=== PATIENT | female | born 1990 | race Caucasian/White ===

== ENCOUNTER 2019-10-06 16:37 | Inpatient (IN) | payer MEDICAID ==
[~2019-10-06] VITALS: Ht 157.5 cm; Wt 81.6 kg
[2019-10-06 16:58] VITALS: BP 153/84
--- NOTE | 2019-10-06 17:14 | NUR ---
Patient ambulated to bed 2
[2019-10-06] MEDS ORDERED: NACL 0.9% 1,000 ML IV ONE (17:20)
[2019-10-06] MEDS ORDERED: cefTRIAXone 1,000 MG VIAL ONE (17:35)
--- NOTE | 2019-10-06 17:44 | NUR ---
29 Y/O FEMALE PRESENT WITH LEFT BREAST SWELLLING/ PAIN STARTING TWO WEEKS AGO. BREAST BIOPSY WAS PERFORMED SEP 23. BREST IS WARM TO TOUCH, TENDER AND RED AROUND AREOLA. PATIENT RATES PAIN 8/10. PT DENIES SOB/ CP. RESP ARE EVEN AND UNLABORED. LUNG SOUNDS CLEAR IN ALL FARIAS. BOWEL SOUNDS NORMO ACTIVE. CAP REFILL <3. AAOX4. NO PMH NKA
--- NOTE | 2019-10-06 18:04 | NUR ---
BLOOD CULTURES OBTAINED AT BESIDE. ANTIBIOTICS STARTED AFTERWARDS
[2019-10-06 18:19] LABS: BASOPHILS % (AUTO) 0.5 % (0.0-2.0); EOSINOPHILS # (AUTO) 0.2 K/uL (0-0.4); EOSINOPHILS % (AUTO) 2.5 % (0.0-4.0); HEMATOCRIT 40.3 % (36-48); HEMOGLOBIN 13.1 g/dL (12.0-16.0); LYMPHOCYTES # (AUTO) 1.8 K/uL (2.5-16.5); LYMPHOCYTES % (AUTO) 20.1 % (20.5-51.1); MEAN CORPUSCULAR HEMOGLOBIN 27 pg (27-31); MEAN CORPUSCULAR HGB CONC 33 g/dL (33-37); MONOCYTES # (AUTO) 0.5 K/uL (0.8-1.0); MONOCYTES % (AUTO) 5.4 % (1.7-9.3); NEUTROPHILS # (AUTO) 6.5 K/uL (1.8-7.7); NEUTROPHILS % (AUTO) 71.5 % (42.2-75.2); PLATELET COUNT (AUTO) 279 K/uL (140-450); RED BLOOD CELL COUNT(AUTO) 4.92 MIL/uL (4.20-5.40)
[2019-10-06 18:33] LABS: PROTHROMBIN TIME 10.2 secs (10.8-13.4)
[2019-10-06 18:35] LABS: ANION GAP 15.2 (8-16); CARBON DIOXIDE 25.7 mmol/L (21-32); CREATININE 0.6 mg/dL (0.6-1.3); POTASSIUM 3.9 mmol/L (3.5-5.1)
--- NOTE | 2019-10-06 18:44 | NUR ---
PT IS RESTING IN BED. VSS. RESP EVEN AND UNLABORED. ALL NEEDS MET AT THIS TIME
[2019-10-06] MEDS ORDERED: HYDROcodone/APAP 5/325 MG 1 TAB TAB PO PRN (19:10)
[2019-10-06] MEDS ORDERED: LORazepam 2 MG/ML VIAL IM/IVP PRN (19:10)
[2019-10-06] MEDS ORDERED: ACETAMINOPHEN 325 MG TAB PO PRN (19:10)
[2019-10-06] MEDS ORDERED: ZOLPIDEM 5 MG TAB PO PRN (19:10)
[2019-10-06] MEDS ORDERED: DOCUSATE SODIUM 100 MG GELCAP PO PRN (19:10)
[2019-10-06] MEDS ORDERED: ONDANSETRON 4 MG/2 ML VIAL IM/IVP PRN (19:10)
[2019-10-06] MEDS ORDERED: MORPHINE SULFATE 2 MG/ML SYR IVP PRN (19:10)
--- NOTE | 2019-10-06 19:12 | NUR ---
SBAR GIVEN TO CINDY RN.
--- NOTE | 2019-10-06 19:35 | NUR ---
Patient will be admitted to care of DR. MARTINEZ. Admited to MED SURG. Will go to room 120B. Belongings list completed. Report to SHONDA ROSS. PT VSS.
--- NOTE | 2019-10-06 19:40 | NUR ---
ADMITTED THIS 29 YEAR OLD FEMALE FROM ER PER DEEPALI WITH CC OF LEFT BREAST ABSCESS, AMBULATED TO BED WITH STEADY GAIT, TOLERABLE PAIN 5/10 AT THIS TIME, VITAL SIGNS STABLE, AFEBRILE, PT KINYARWANDA SPEAKING, HX AND ASSESSMENT OBTAINED WITH ASSIST FROM Stealz FIELD TECHNICAL SPECIALIST ESAU ID#[id number], ORIENTED TO ROOM AND CALL LIGHT, PLAN OF CARE DISCUSSED, SAFETY MEASURES IN PLACE, CALL LIGHT WITHIN REACH.
[2019-10-06 19:50] VITALS: BP 131/75
[2019-10-06 21:09] LABS: CHOL/HDL RATIO 5.8 (1-4.5); FREE T4 (FREE THYROXINE) 1.15 ng/dL (0.76-1.46); PHOSPHORUS 3.3 mg/dL (2.5-4.9); THYROID STIMULATING HORMONE 1.99 uIU/mL (0.34-3.74)
[2019-10-06] MEDS: NACL 0.9% 1,000 ML IV SCH (21:10)
--- NOTE | 2019-10-06 21:20 | NUR ---
DR JNUIOR GAVE VERBAL ORDER TO FEED PT AND BE NPO AFTER MIDNIGHT, SANDWICH PROVIDED, TOLERATED WELL, INSTRUCTED PT NPO AFTER MIDNIGHT, VERBALIZED UNDERSTANDING, IVF OF NS INFUSING WELL AT 120ML/H, MONITORED CLOSELY.
[2019-10-06] MEDS ORDERED: INFLUENZA VACCINE QUAD 0.5 ML SYR IMVAC PRN (22:20)
[2019-10-07] VITALS: BP 116/77
--- NOTE | 2019-10-07 | NUR ---
PT SLEEPING, EASILY AROUSABLE, DENIES ANY PAIN, VITAL SIGNS STABLE, REINFORCE NPO STATUS, VERBALIZED UNDERSTANDING, IVF INFUSING WELL, CONTINUE TO MONITOR CLOSELY.
[2019-10-07 02:13] LABS: BARBITURATE, URINE NEG. ng/ml (NEG <=200); BENZODIAZEPINE, URINE NEG. ng/mL (NEG <=200); CANNABINOID, URINE NEG. ng/mL (NEG <=50); COCAINE, URINE NEG. ng/mL (NEG <=300); OPIATE, URINE NEG. ng/mL (NEG <=2000); PHENCYCLIDINE SCREEN,URINE NEG. ng/mL (NEG <=25)
--- NOTE | 2019-10-07 03:10 | NUR ---
PT COMPLAINING OF LEFT BREAST PAIN, MEDICATED PRN WITH MORPHINE IVP, MONITORED CLOSELY.
[2019-10-07 04:02] LABS: APPEARANCE,URINE CLEAR (CLEAR); BILIRUBIN,URINE NEGATIVE (NEGATIVE); BLOOD, URINE NEGATIVE (NEGATIVE); COLOR,URINE YELLOW (YELLOW); LEUKOCYTE ESTERASE ,URINE NEGATIVE (NEGATIVE); NITRITE, URINE NEGATIVE (NEGATIVE); UGLUCOSE NEGATIVE (NEGATIVE)
--- NOTE | 2019-10-07 04:10 | NUR ---
SEEN PT SLEEPING, VISIBLE CHEST RISE AND FALL, NO DISTRESS NOTED, IVF INFUSING WELL, MONITORED CLOSELY.
[2019-10-07] MEDS: NACL 0.9% 1,000 ML IV SCH ×3 (05:12→22:14)
--- NOTE | 2019-10-07 06:24 | NUR ---
PT AWAKE, CHG PRE-OP WIPES DONE WITH ASSIST FROM CENTRIFUGAL STATION OPERATOR, MAINTAINED ON NPO, IVF INFUSING WELL, NO C/O PAIN AT THIS TIME, MONITORED CLOSELY.
--- NOTE | 2019-10-07 07:10 | NUR ---
PT AWAKE, NO SIGNS OF DISTRESS, BEDSIDE REPORT GIVEN TO VANDANA MARX FOR CONTINUITY OF CARE.
--- NOTE | 2019-10-07 07:25 | NUR ---
RECEIVED BEDSIDE REPORT FROM QUARRY BOSS NURSE, PT IS AWAKE AND ALERT LYING IN BED, NO S/S OF DISTRESS, ON RA. C/O MILD L BREAST PAIN. PT IS NPO FOR I&D OF THE L BREAST ABSCESS THIS AM. CONSENT HAS ALREADY BEEN SIGNED. PT IS AMBULATORY AND ABLE TO MAKE NEEDS KNOWN. IV SITE L AC 22 G, INFUSING NS 120 ML/HR. CALL LIGHT IS WITHIN REACH. WILL CONTINUE TO MONITOR.
[2019-10-07 08:00] VITALS: BP 125/80
--- NOTE | 2019-10-07 08:17 | NUR ---
PT TAKEN OFF UNIT FOR L BREAST I&D
--- NOTE | 2019-10-07 08:24 | NUR ---
WILL BE SEEN WITHIN 7 DAYS OF ADMISSION. 10/13/[address]
[2019-10-07] MEDS ORDERED: HYDROmorphone 1 MG/ML AMP IVP PRN (09:15)
[2019-10-07] MEDS ORDERED: ONDANSETRON 4 MG/2 ML VIAL IVP PRN (09:15)
[2019-10-07] MEDS ORDERED: PROPOFOL 200 MG/20 ML VIAL IV ONE (09:16)
[2019-10-07] MEDS ORDERED: DESFLURANE 240 ML BTL INH ONE (09:16)
[2019-10-07] MEDS ORDERED: KETOROLAC 60 MG/2 ML VIAL IM ONE (09:16)
[2019-10-07] MEDS ORDERED: DEXAMETHASONE 4 MG/ML VIAL ONE (09:16)
[2019-10-07] MEDS ORDERED: ONDANSETRON 4 MG/2 ML VIAL ONE (09:16)
[2019-10-07] MEDS: BUPIVACAINE-MPF 0.25% 30 ML VIAL INJ ONE ×2 (09:17→10:03)
[2019-10-07] MEDS: LIDOCAINE 1% 500 MG/50 ML VIAL ONE ×2 (09:17→10:03)
[2019-10-07] MEDS ORDERED: HYDROcodone/APAP 5/325 MG 1 TAB TAB PO PRN (09:50)
[2019-10-07 10:40] VITALS: BP 119/61
--- NOTE | 2019-10-07 10:40 | NUR ---
PT IS BACK FROM THE [facility] VS ARE STABLE, PT C/O MINIMAL INCISIONAL PAIN. SHE SAYS SHE IS NOT HUNGRY AT THE MOMENT AND DOESN'T WANT TO EAT. PT IS ON A REGULAR DIET NOW.
[2019-10-07] MEDS: LACTOBACILLUS RHAMNOSUS GG 1 EACH CAP PO SCH (11:31)
[2019-10-07] MEDS: PIPERACILLIN/TAZOBACTAM 3.375 GM in DEXTROSE 5% 50 ML IV SCH ×3 (11:32→23:36)
--- NOTE | 2019-10-07 11:35 | NUR ---
DC PLANNIN YRS OLD FEMALE PT WAS ADMITTED FROM HOME WITH A DX OF LEFT BREAST ABSCESS .BREAST ULTRASOUND SHOWED A COMPLEX COLLECTION IN THE LEFT BREAST. STARTED ON IVF ,SURGICAL CONSULT WITH DR SILVA S/P I&D ON LEFT BREAST DC PLAN WITH HOME HEALTH , IF NOT HOME HEALTH WILL [facility] . CM TO FOLLOW.
--- NOTE | 2019-10-07 11:42 | NUR ---
PT'S FRIENDS ARE VISITING AT BEDSIDE. PT'S CLOSE FRIEND EDDY GAVE HER PHONE NUMBER [phone]
--- NOTE | 2019-10-07 14:46 | NUR ---
PT IS AWAKE AND COMFORTABLE IN BED, C/O MINIMAL L BREAST PAIN S/P I&D, DECLINING ANY PAIN MEDICINE AT THIS TIME. WILL CONTINUE TO MONITOR.
[2019-10-07 16:00] VITALS: BP 116/63
--- NOTE | 2019-10-07 18:27 | NUR ---
PT EATING DINNER, L CHEST DRESSING IS INTACT. C/O MINIMAL PAIN, NO NEED FOR PAIN MEDICINE AT THIS TIME.
--- NOTE | 2019-10-07 19:20 | NUR ---
RECIEVED PT. AAOX4 , NID , RA , W/ BEARABLE POST OP PAIN , -DRESSING ON THE LEFT BREAST STILL DRY AND INTACT . POC DISCUSSED AND VERBALIZE UNDERSTANDING - CALL LIGHT WITHIN REACH . ON SAFETY PRECAUTION PROTOCOL PRECAUTION . WILL CONT. TO MONITOR.
--- NOTE | 2019-10-07 19:20 | NUR ---
ENDORSED PT TO DIRECTOR IT NURSE IN STABLE CONDITION.
--- NOTE | 2019-10-07 22:24 | NUR ---
MADE ROUNDS , NO COMPLAIN MADE AT THIS TIME - CALL LIGHT WITHIN REACH.
--- NOTE | 2019-10-08 | NUR ---
MADE ROUNDS , C/O PAIN ON SURGICAL SITE - DRESSING STILL DRY AND INTACT - NO ACTIVE BLEEDING ON SURGICAL SITE NOTED AT THIS TIME . JUST MEDICATED FOR PAIN - WILL CONT. TO MONITOR. CALL LIGHT WITHIN REACH.
[2019-10-08 00:23] VITALS: BP 110/60
--- NOTE | 2019-10-08 04:00 | NUR ---
MADE ROUNDS , NO S/S OF ACUTE DISTRESS NOTED AT THIS TIME. WILL CONT. TO MONITOR.
[2019-10-08] MEDS: NACL 0.9% 1,000 ML IV SCH (04:28)
[2019-10-08] MEDS: PIPERACILLIN/TAZOBACTAM 3.375 GM in DEXTROSE 5% 50 ML IV SCH (05:04)
--- NOTE | 2019-10-08 06:00 | NUR ---
MADE ROUNDS , NO C/O PAIN AT THIS TIME , WILL CONT. TO MONITOR.
[2019-10-08 07:06] LABS: BASOPHILS % (AUTO) 0.2 % (0.0-2.0); EOSINOPHILS % (AUTO) 0.1 % (0.0-4.0); HEMATOCRIT 36.3 % (36-48); HEMOGLOBIN 11.9 g/dL (12.0-16.0); LYMPHOCYTES # (AUTO) 1.8 K/uL (2.5-16.5); MEAN CORPUSCULAR HEMOGLOBIN 27 pg (27-31); MEAN CORPUSCULAR HGB CONC 33 g/dL (33-37); MONOCYTES # (AUTO) 0.4 K/uL (0.8-1.0); MONOCYTES % (AUTO) 4.7 % (1.7-9.3); PLATELET COUNT (AUTO) 300 K/uL (140-450); RED BLOOD CELL COUNT(AUTO) 4.43 MIL/uL (4.20-5.40); RED CELL DISTRIBUTION WIDTH 13.6 % (11.6-13.7); WHITE BLOOD COUNT (AUTO) 8.2 K/uL (4.8-10.8)
--- NOTE | 2019-10-08 07:11 | NUR ---
ENDORSED TO AM - PT - STABLE - O2 SAT WNL ,ASLEEP AND COMFORTABLE.
--- NOTE | 2019-10-08 07:12 | NUR ---
RECEIVED PATIENT FROM MANAGEMENT ENGINEER NURSE FOR CONTINUITY OF CARE. AAOX4. CENTRAL AFRICAN SPEAKING ONLY. NO SIGNS OF DISTRESS NOTED. RESPIRATIONS EVEN AND UNLABORED, ROOM AIR. DENIES SOB. VISIBLE CHEST RISE NOTED. DENIES CHEST PAIN. DENIES PAIN. SKIN WARM, DRY, INTACT. . IV IN THE LEFT AC G 22 RUNNING NS AT 120 ML/HR. IV IS FLUSHING WELL. BED IN LOW POSITION. CALL LIGHT IS WITHIN REACH. SAFETY MEASURES IN PLACE. WILL CONTINUE TO MONITOR Addendum: 10/08/19 at 0739 by Princess Lamar Olivier RN POST I&D IN THE LEFT BREAST. DRESSING DRY AND INTACT. NO BLEEDING.
[2019-10-08 07:25] LABS: ANION GAP 13.6 (8-16); CARBON DIOXIDE 24.2 mmol/L (21-32); CREATININE 0.5 mg/dL (0.6-1.3); POTASSIUM 3.8 mmol/L (3.5-5.1)
[2019-10-08 07:41] LABS: CHOL/HDL RATIO 5.7 (1-4.5); PHOSPHORUS 2.6 mg/dL (2.5-4.9)
[2019-10-08 08:00] VITALS: BP 126/72
[2019-10-08] MEDS: LACTOBACILLUS RHAMNOSUS GG 1 EACH CAP PO SCH (08:25)
--- NOTE | 2019-10-08 08:25 | NUR ---
GIVEN PROBIOTIC SCHEDULED. HANG NEW NS 1000 BAG AT RATE OF 120 ML/HR. EXPLAINED TO PATIENT MED AND SIDE EFFECTS. PATIENT VERBALIZED UNDERSTANDING. BED IN LOW POSITION. CALL LIGHT IS WITHIN REACH. WILL CONTINUE TO MONITOR
--- NOTE | 2019-10-08 08:28 | NUR ---
DR. JOHNSON SPOKE WITH THE PATIENT REGARDING HOME HEALTH FOR WOUND PACKING.
--- NOTE | 2019-10-08 09:58 | NUR ---
SOCIAL SERVICE AND DR. JOHNSON SPOKE WITH THE PATIENT REGARDING HER QUALIFICATION FOR HOME HEALTH. UNFORTUNATELY, SHE DID NOT QUALIFY. WILL TEACH WOUND CARE TO THE PATIENT AND HER AUNT WHEN SHE COMES VISIT.
[2019-10-08 10:04] VITALS: BP 126/72
--- NOTE | 2019-10-08 10:15 | NUR ---
Hand Laminator Note: Patient has [employer] restricted coverage and does not have home health services benefits. , patient's nurse , and I met with patient at bedside. Patient speaks Kinyarwanda. Patient is aware [employer] restricted does not cover home health benefits. Per , patient/patient's family can be taught how to care for abscess by RN. Patient stated she and her aunt Zahraa are willing to learn how to care of abscess. Per VANDANA Meza, she will provide patient and Zahraa with teaching and also provide patient with wound care supplies. stated he will provide patient with surgeon follow up appt information, patient made aware.
[2019-10-08] MEDS ORDERED: SULF-59 PO (10:38)
[2019-10-08] MEDS ORDERED: ASCO1CAP75 PO (10:38)
--- NOTE | 2019-10-08 12:10 | NUR ---
GIVEN WOUND CARE INSTRUCTIONS AND SUPPLIES. DISCUSSED TO PATIENT AND COUSIN, EDDY, HOW TO CHANGE DRESSINGS AND HOW TO PACK. DEMONSTRATED HOW TO CHANGE DRESSINGS. GIVEN SUPPLIES. INSTRUCTED PATIENT THAT IF SHE SEES ANY ABNORMAL SMELL OR DRAINAGE, BLEEDING, FEVER, OR ANY ABNORMALITIES TO GO SEE A DOCTOR OR TO GO TO ED. PATIENT AND EDDY VERBALIZED AND RETURNED DEMONSTRATIONS WELL
--- NOTE | 2019-10-08 12:18 | NUR ---
PATIENT SIGNED DISCHARGE PAPERS. EDDY, TRANSLATED TO THE PATIENT. EXPLAINED THAT DOCTOR'S PRESCRIBED ANTIBIOTIC AND PROBIOTIC THAT SHE WILL HAVE TO SANDBLAST CARVER AT HER PREFERRED PHARMACY. EXPLAINED AND DEMONSTRATED THE WOUND CARE PACKING AND INSTRUCTIONS. EXPLAINED THAT ONCE WE GOT THE RESULTS FOR THE WOUND CULTURE, DOCTOR WILL CALL HER ABOUT THE RESULTS OR IF THERE A NEED FOR ANOTHER OR DIFFERENT ANTIBIOTIC. PATIENT AND EDDY VERBALIZED UNDERSTANDING.
--- NOTE | 2019-10-08 12:27 | NUR ---
PATIENT SIGNED DISCHARGE PAPERWORKS. WILL GIVE FLU SHOT. Addendum: 10/08/19 at 1239 by Princess Lamar Olivier RN IGNORE. WRONG ENTRY
--- NOTE | 2019-10-08 12:42 | NUR ---
WILL GIVE FLU SHOT
--- NOTE | 2019-10-08 12:52 | NUR ---
GIVEN FLU SHOT IN THE RIGHT UPPER ARM. EXPLAINED TO PATIENT MED AND SIDE EFFECTS. PATIENT VERBALIZED UNDERSTANDING.
--- NOTE | 2019-10-08 12:59 | NUR ---
REMOVED ID BAND. DISCONTINUED IV. NO BLEEDING. SECURED WITH 2X2 AND TAPE.
--- NOTE | 2019-10-08 13:00 | NUR ---
DISCHARGED PATIENT ON FOOT ACCOMPANIED BY EDDY. PATIENT IS IN STABLE AT THIS TIME. NO QUESTIONS. NO SOB. NO ABD PAIN. PATIENT HAS ALL THE DISCHARGE PAPERS AND WOUND CARE INSTRUCTIONS
--- NOTE | 2019-10-10 11:29 | NUR ---
Late entry. Confirmed with RN that 0.9 NS IV completed at 1930
== END 2019-10-08 11:50 | disposition home or self-care (01) | DRG 385 ==
LOC: MED 16:37 → MTU 19:11
PROVIDERS: ADMIT General Practice; ATTEND General Practice
PROC: 0H9U0ZZ Drainage of Left Breast, Open Approach (ICD-10-PCS; principal; 2019-10-07 08:20)
DX: N61.1 Abscess of the breast and nipple (principal); E66.9 Obesity, unspecified; E78.5 Hyperlipidemia, unspecified; Z68.32 Body mass index [BMI] 32.0-32.9, adult
CPT/HCPCS: 36415; 71045; 76641; 80048; 80305; 81003; 81025; 82150; 83036; 83605; 83690; 83735; 83880; 84100; 84439; 84443; 84484; 85025; 85610; 87040; 87070; 87081; 96365; 99285; J0696; J1100; J1885; J2001; J2270; J2405; J2543; J2704; J3490; J7030; J7060; Q0092

== ENCOUNTER 2020-07-24 06:55 | Inpatient (IN) | payer MEDICAID, SELFPAY ==
[~2020-07-24] VITALS: Ht 157.5 cm; Wt 83.5 kg
[~2020-07-24 06:55] MED LIST: ASCO1CAP75 PO; SULF-59 PO
[2020-07-24 07:05] VITALS: BP 124/83
--- NOTE | 2020-07-24 07:05 | NUR ---
TO BED # 12 AMBULATORY
--- NOTE | 2020-07-24 07:34 | NUR ---
30/F C/O RIGHT BREAST PAIN/ABSCESS FORMATION X 1 MONTH A/W DISCHARGE. DENIES NIPPLE DISCHARGE. NO ACTIVE DRAINAGE FROM RIGHT BREAST AT THIS TIME. AREA ERYTHEMATOUS, EDEMATOUS, AND INDURATED. VSS. HX- LEFT BREAST ABSCESS Addendum: 07/24/20 at 0748 by MARY 1 WEEK NOT 1 MONTH
--- NOTE | 2020-07-24 07:48 | NUR ---
Female Tool Straightener (MYSELF) accompanied DR. TIJERINA FOR female patient BREAST EXAM.
[2020-07-24] MEDS ORDERED: CLINDAMYCIN 600 MG in DEXTROSE 5% 50 ML IV ONE (08:05)
[2020-07-24] MEDS ORDERED: CLINDAMYCIN 600 MG/4 ML VIAL ONE ×2 (08:10→12:22)
--- NOTE | 2020-07-24 08:28 | NUR ---
CXR AT BEDSIDE
--- NOTE | 2020-07-24 08:29 | NUR ---
BLOOD DRAW AND RAPID DENA SAMPLES HANDED TO SPECIAL PROGRAMS DIRECTOR
--- NOTE | 2020-07-24 08:32 | NUR ---
EMT AT BEDSIDE FOR EKG
[2020-07-24 08:38] LABS: BASOPHILS % (AUTO) 0.3 % (0.0-2.0); EOSINOPHILS # (AUTO) 0.1 K/uL (0-0.4); HEMATOCRIT 38.4 % (36-48); HEMOGLOBIN 12.6 g/dL (12.0-16.0); LYMPHOCYTES # (AUTO) 1.7 K/uL (2.5-16.5); LYMPHOCYTES % (AUTO) 18.1 % (20.5-51.1); MEAN CORPUSCULAR HEMOGLOBIN 26 pg (27-31); MEAN CORPUSCULAR HGB CONC 33 g/dL (33-37); MEAN CORPUSCULAR VOLUME 78.6 fL (80-94); MONOCYTES # (AUTO) 0.5 K/uL (0.8-1.0); NEUTROPHILS # (AUTO) 7.3 K/uL (1.8-7.7); NEUTROPHILS % (AUTO) 75.6 % (42.2-75.2); PLATELET COUNT (AUTO) 327 K/uL (140-450); RED BLOOD CELL COUNT(AUTO) 4.88 MIL/uL (4.20-5.40); RED CELL DISTRIBUTION WIDTH 14.5 % (11.6-13.7); WHITE BLOOD COUNT (AUTO) 9.6 K/uL (4.8-10.8)
[2020-07-24 08:57] LABS: PROTHROMBIN TIME 10.2 secs (10.8-13.4)
[2020-07-24 09:02] LABS: ALBUMIN 4.3 g/dL (3.4-5.0); ANION GAP 15.5 (8-16); CARBON DIOXIDE 25.7 mmol/L (21-32); CREATININE 0.8 mg/dL (0.6-1.3); POTASSIUM 4.2 mmol/L (3.5-5.1); TOTAL BILIRUBIN 0.7 mg/dL (0.0-1.0)
[2020-07-24] MEDS ORDERED: ACETAMINOPHEN 325 MG TAB PO PRN (09:20)
[2020-07-24] MEDS ORDERED: DOCUSATE SODIUM 100 MG GELCAP PO PRN (09:20)
[2020-07-24] MEDS ORDERED: ONDANSETRON 4 MG/2 ML VIAL IM/IVP PRN (09:20)
[2020-07-24] MEDS ORDERED: ZOLPIDEM 5 MG TAB PO PRN (09:20)
[2020-07-24] MEDS ORDERED: MAG SULF 2000 MG/WATER PREMIX 50 ML IV PRN (09:20)
[2020-07-24] MEDS ORDERED: HYDROcodone/APAP 5/325 MG 1 TAB TAB PO PRN (09:20)
[2020-07-24] MEDS ORDERED: MORPHINE SULFATE 2 MG/ML SYR IVP PRN (09:20)
[2020-07-24] MEDS ORDERED: LORazepam 2 MG/ML VIAL IM/IVP PRN (09:20)
[2020-07-24] MEDS ORDERED: POTASSIUM CHLORIDE 10 MEQ TABER PO PRN (09:20)
[2020-07-24 10:46] LABS: MAGNESIUM 2.2 mg/dL (1.8-2.4)
[2020-07-24 10:47] LABS: CHOL/HDL RATIO 5.3 (1-4.5); PHOSPHORUS 3.3 mg/dL (2.5-4.9); THYROID STIMULATING HORMONE 2.79 uIU/mL (0.34-3.74)
--- NOTE | 2020-07-24 12:20 | NUR ---
S/W PHARMACIST ABOUT CLEOCIN 600 MG IV Q8HR. A DOSE IS SCHEDULED FOR 1300, PREVIOUSLY GIVEN AT 0830. PHARMACIST ADVISED TO ADMIN THE 1300 DOSE AT 1400 INSTEAD.
[2020-07-24] MEDS: CLINDAMYCIN 600 MG in DEXTROSE 5% 50 ML IV SCH ×2 (13:00→15:00)
--- NOTE | 2020-07-24 13:15 | NUR ---
Patient will be admitted to care of DR. DANIELLE. Admited to TELEMETRY. Will go to room 104B. Belongings list completed. Report to OR STAFF.
[2020-07-24] MEDS ORDERED: LIDOCAINE 1% 500 MG/50 ML VIAL ONE (13:25)
[2020-07-24] MEDS ORDERED: BUPIVACAINE-MPF 0.25% 30 ML VIAL INJ ONE (13:25)
[2020-07-24] MEDS ORDERED: LIDOCAINE MPF 2% 100 MG/5 ML VIAL INJ ONE (14:08)
[2020-07-24] MEDS ORDERED: MIDAZOLAM 5 MG/5 ML VIAL ONE (14:08)
[2020-07-24] MEDS ORDERED: ONDANSETRON 4 MG/2 ML VIAL ONE (14:08)
[2020-07-24] MEDS ORDERED: fentaNYL citrate 0.05 MG/ML VIAL ONE (14:08)
[2020-07-24] MEDS ORDERED: PROPOFOL 200 MG/20 ML VIAL IV ONE (14:08)
[2020-07-24] MEDS ORDERED: DEXAMETHASONE 4 MG/ML VIAL ONE (14:08)
[2020-07-24] MEDS ORDERED: SEVOFLURANE 250 ML BTL INH ONE (14:08)
[2020-07-24] MEDS ORDERED: ONDANSETRON 4 MG/2 ML VIAL IVP PRN (15:00)
[2020-07-24] MEDS ORDERED: HYDROmorphone 1 MG/ML AMP IVP PRN (15:00)
[2020-07-24] MEDS ORDERED: MEPERIDINE 25 MG/ML SYR IVP PRN (15:00)
[2020-07-24] MEDS ORDERED: diphenhydrAMINE 50 MG/ML VIAL IVP PRN (15:00)
[2020-07-24] MEDS: LACTATED RINGERS 1,000 ML IV SCH ×2 (15:00→15:27)
[2020-07-24 15:35] VITALS: BP 116/63
--- NOTE | 2020-07-24 15:35 | NUR ---
RECEIVED PT FROM OR NURSE, PT AAOX4, PT IS STABLE, NO SIGNS OF DISTRESS NOTED, RESPIRATIONS ARE EVEN AND UNLABORED ON ROOM AIR, PT HAS LEFT FOREARM 20G IV, ORIENTED PT TO THE ROOM, SAFETY MEASURES IN PLACE, CALL LIGHT WITHIN REACH, WILL CONTINUE TO MONITOR
[2020-07-24 16:00] VITALS: BP 111/56
--- NOTE | 2020-07-24 17:00 | NUR ---
PT RESTING IN BED, NO SIGNS OF DISTRESS NOTED, PT IS STABLE, WILL CONTINUE TO MONITOR.
[2020-07-24] MEDS ORDERED: CIPR500T4 PO (17:54)
[2020-07-24] MEDS ORDERED: HYDR-5122 PO (17:54)
--- NOTE | 2020-07-24 19:25 | NUR ---
ENDORSE PT TO NIGHT NURSE FOR CONTINUITY OF CARE, PT IS STABLE.
--- NOTE | 2020-07-24 19:26 | NUR ---
RECD. SITTING ON BED, AWAKE, A/OX4. RESPIRATION EVEN AND UNLABORED. IV OF LR INFUSING AT 150 ML/HR, LEFT AC G20. S/P INCISION AND DRAINAGE OF RIGHT BREAST ABSCESS, INCISION COVERED WITH DRESSING DRY AND INTACT. VOIDING WELL, AMBULATING TO THE BR. WANTS TO GO HOME TODAY, AWARE OF DISCHARGE ORDER BY DR. SILVA. DENIES PAIN 0/10.
[2020-07-24 19:36] VITALS: BP 116/65
[2020-07-24 20:00] VITALS: BP 116/65
--- NOTE | 2020-07-24 20:10 | NUR ---
DISCHARGE INSTRUCTIONS GIVEN, VERBALIZED UNDERSTANDING. GIVEN SANDWICH AND JUICES.
--- NOTE | 2020-07-24 20:45 | NUR ---
TOLERATED WELL REGULAR DIET. IV LINE TAKEN OUT. CHANGED INTO HER HOME CLOTHES.
--- NOTE | 2020-07-24 21:00 | NUR ---
PRESCRIPTION OF NORCO AND PO ANTIBIOTICS GIVEN TO PATIENT, GAUZE FOR DRESSING GIVEN PER INSTRUCTION OF DR. SILVA. VERBALIZED UNDERSTANDING ON HOW TO DO DRESSING CHANGE. ALL BELONGINGS TAKEN TO HOME. TAKEN TO HOSPITAL LOBBY PARKING AREA VIA W/C IN STABLE CONDITION ACCOMPANIED BY LICENSED PROFESSIONAL COUNSELOR TO WAITING PRIVATE VEHICLE FOR DISCHARGE TO HOME.
== END 2020-07-24 21:00 | disposition home or self-care (01) | DRG 385 ==
LOC: MED 06:55 → MMU 09:26 → MTU 13:07
PROC: 0H9T0ZZ Drainage of Right Breast, Open Approach (ICD-10-PCS; principal; 2020-07-24 15:30)
DX: N61.21 Granulomatous mastitis, right breast (principal); N61.1 Abscess of the breast and nipple; E78.5 Hyperlipidemia, unspecified; E66.9 Obesity, unspecified; Z68.33 Body mass index [BMI] 33.0-33.9, adult; Z88.0 Allergy status to penicillin; Z20.828 Contact with and (suspected) exposure to other viral communicable diseases
CPT/HCPCS: 36415; 71045; 76641; 80053; 82150; 83036; 83690; 83735; 83880; 84100; 84134; 84436; 84443; 85025; 85610; 87070; 87075; 87205; 93005; 96365; 99285; J1100; J2001; J2250; J2405; J2704; J3010; J3490; J7060

== ENCOUNTER 2020-09-18 06:40 | Day surgery (SDC) | payer MEDICAID, SELFPAY ==
[~2020-09-18] VITALS: Ht 157.5 cm; Wt 83.5 kg
--- NOTE | 2020-09-18 00:30 | NUR ---
REQUESTED FOR JELLO AND JUICES, TOLERATED WELL. AMBULATED TO BR TO VOID, BACK TO BED AFTER VOIDING. Addendum: 09/19/20 at 0642 by Suze Abernathy LVN AMEND: WRONG ENTRY DATE SHOULD BE 09/19/20
[~2020-09-18 06:40] MED LIST changes: -ASCO1CAP75 PO; +CIPR500T4 PO; +HYDR-5122 PO; -SULF-59 PO
[2020-09-18 06:45] VITALS: BP 115/58
--- NOTE | 2020-09-18 06:45 | NUR ---
to bed # 01 ambulatory
--- NOTE | 2020-09-18 07:14 | NUR ---
30 y/o female bib self. patient states that she had breast surgery 09/15/20. No pain at this time. no pain upon palpating the surrounding areas of the breast. Noted slight clear/yellow fluid noted from surgical site. no size difference compared to her left breast. Patient states she is taking antibiotics, but has not been taking them. a/o x4; breathing unlabored; denies any n/v. able to ambulate independently. ERMD made aware. Side rails x1. placed on monitor. bed at lowest setting. PMH: denies Allergies: PCNs
[2020-09-18] MEDS ORDERED: CLINDAMYCIN 600 MG in DEXTROSE 5% 50 ML IV ONE (07:15)
[2020-09-18] MEDS ORDERED: KETOROLAC 15 MG/ML VIAL IVP ONE (07:15)
--- NOTE | 2020-09-18 07:15 | NUR ---
REPORT RECEIVED FROM VANDANA CARR. ALL CARE TRANSFERRED AT THIS TIME.
--- NOTE | 2020-09-18 07:15 | NUR ---
REPORT RECEIVED FROM VANDANA CARR. ALL CARE TRANSFERRED AT THIS TIME.
[2020-09-18 07:41] LABS: BASOPHILS # (AUTO) 0.1 K/uL (0.00-0.22); BASOPHILS % (AUTO) 0.8 % (0.0-2.0); EOSINOPHILS # (AUTO) 0.1 K/uL (0-0.4); EOSINOPHILS % (AUTO) 1.6 % (0.0-4.0); HEMATOCRIT 37.1 % (36-48); HEMOGLOBIN 12.2 g/dL (12.0-16.0); LYMPHOCYTES # (AUTO) 1.7 K/uL (2.5-16.5); LYMPHOCYTES % (AUTO) 23.8 % (20.5-51.1); MEAN CORPUSCULAR HEMOGLOBIN 26 pg (27-31); MEAN CORPUSCULAR HGB CONC 33 g/dL (33-37); MEAN CORPUSCULAR VOLUME 78.1 fL (80-94); MONOCYTES # (AUTO) 0.4 K/uL (0.8-1.0); NEUTROPHILS # (AUTO) 4.7 K/uL (1.8-7.7); NEUTROPHILS % (AUTO) 67.8 % (42.2-75.2); PLATELET COUNT (AUTO) 299 K/uL (140-450); RED BLOOD CELL COUNT(AUTO) 4.75 MIL/uL (4.20-5.40); RED CELL DISTRIBUTION WIDTH 14.7 % (11.6-13.7)
--- NOTE | 2020-09-18 07:47 | NUR ---
ULTRASOUND AT BEDSIDE
[2020-09-18 07:49] LABS: PROTHROMBIN TIME 10.1 secs (10.8-13.4)
[2020-09-18 07:56] LABS: ANION GAP 13.1 (8-16); CARBON DIOXIDE 26.8 mmol/L (21-32); CREATININE 0.7 mg/dL (0.6-1.3); POTASSIUM 3.9 mmol/L (3.5-5.1)
--- NOTE | 2020-09-18 08:03 | NUR ---
AEROBIC CULTURE OF RIGHT BREAST DONE AND WALKED TO LAB.
--- NOTE | 2020-09-18 09:01 | NUR ---
DENA SWAB DONE. HANDED TO DALLAS CARRANZA
--- NOTE | 2020-09-18 10:00 | NUR ---
CALLED VANDANA WILEY TO GIVE REPORT. ASKED TO CALL BACK IN 15 MINUTES TO GIVE REPORT.
[2020-09-18 10:16] VITALS: BP 124/63
--- NOTE | 2020-09-18 10:16 | NUR ---
RECEIVED A TELEPHONE REP[ORT REGARDING PT FROM ER NURSE, TAYO, WILL BRING PT TO TELE UNIT AT 1030.
--- NOTE | 2020-09-18 10:34 | NUR ---
Patient will be admitted to care of DR. SILVA. Admited to [facility]. Will go to room 105A. Belongings list completed. Report to VANDANA WILEY.
[2020-09-18] MEDS ORDERED: BUPIVACAINE-MPF/EPI 0.25% 10 ML VIAL INJ ONE (10:40)
--- NOTE | 2020-09-18 10:40 | NUR ---
PT WAS BROUGHT TO ROOM NOW, TAMAZIGHT SPEAKING, RT BREAST ABSCESS NOTED, PT VERBALIZED TOLERABLE PAIN ON SITE, IV LINE NOTED ON LEFT AC G. 20 ON SALINE LOCK, PT IS ON ROOM AIR, V/S STABLE, NO SIGN OF DISTRESS NOTED AND WILL MONITOR PT.
--- NOTE | 2020-09-18 11:05 | NUR ---
MRSA SWAB DONE TO PT NOW AND SAMPLE SENT TO LAB.
--- NOTE | 2020-09-18 14:12 | NUR ---
PT IS OFF THE UNIT NOW AND WAS TAKEN BY SURGERY NURSE, BIN AND WAS BROUGHT TO OR.
--- NOTE | 2020-09-18 14:29 | NUR ---
PT WAS BROUGHT BACK TO ROOM NOW BY SURGERY RNBIN AND SAID THAT THE SURGEON WILL BE DOING A PT AND WILL GET THE PT BACK AFTER 2HRS.
[2020-09-18 16:00] VITALS: BP 115/70
--- NOTE | 2020-09-18 16:40 | NUR ---
PT IS RESTING NOW, VERBALIZED TOLERABLE PAIN.
--- NOTE | 2020-09-18 19:15 | NUR ---
ENDORSED PT TO MACHINE ADJUSTER NURSE,FOR CONTINUITY OF CARE
--- NOTE | 2020-09-18 19:16 | NUR ---
RECD. SITTING ON BED, AWAKE, A/OX4. RESPIRATION EVEN AND UNLABORED. IV OF LR FROM OR INFUSING 60 ML/HR AT THE LEFT AC G20. PATIENT IS NPO, AWARE THAT SHE IS SCHEDULED FOR I & D IN OR TONIGHT, PER AM NURSE ENDORSEMENT. WITH RIGHT BREAST ABSCESS. DENIES PAIN 0/10.
--- NOTE | 2020-09-18 19:30 | NUR ---
Patient's Plan of Care was discussed and reviewed with EXTRUDER: SANDY ARAGON
[2020-09-18 20:00] VITALS: BP 124/76
[2020-09-18] MEDS ORDERED: BUPIVACAINE-MPF 0.25% 30 ML VIAL INJ ONE (20:26)
--- NOTE | 2020-09-18 20:30 | NUR ---
TAKEN TO OR VIA BED ACCOMPANIED BY OR NURSES.
[2020-09-18] MEDS ORDERED: KETOROLAC 30 MG/ML VIAL ONE (20:45)
[2020-09-18] MEDS ORDERED: ONDANSETRON 4 MG/2 ML VIAL ONE (20:45)
[2020-09-18] MEDS ORDERED: LIDOCAINE 2% 100 MG/5 ML SYR IVP ONE (20:45)
[2020-09-18] MEDS ORDERED: DEXAMETHASONE 4 MG/ML VIAL ONE (20:45)
[2020-09-18] MEDS ORDERED: SEVOFLURANE 250 ML BTL INH ONE (20:45)
[2020-09-18] MEDS ORDERED: METOCLOPRAMIDE 10 MG/2 ML INJ VIAL ONE (20:45)
[2020-09-18] MEDS ORDERED: PROPOFOL 200 MG/20 ML VIAL IV ONE (20:45)
[2020-09-18] MEDS ORDERED: MIDAZOLAM 2 MG/2 ML VIAL ONE (20:52)
[2020-09-18] MEDS ORDERED: fentaNYL citrate 0.05 MG/ML VIAL ONE (20:52)
[2020-09-18] MEDS ORDERED: MEPERIDINE 25 MG/ML SYR IVP PRN (21:25)
[2020-09-18] MEDS ORDERED: ONDANSETRON 4 MG/2 ML VIAL IVP PRN (21:25)
[2020-09-18] MEDS ORDERED: HYDROmorphone 1 MG/ML AMP IVP PRN (21:25)
[2020-09-18] MEDS: LACTATED RINGERS 1,000 ML IV SCH (22:00)
--- NOTE | 2020-09-18 22:00 | NUR ---
MARKOS. REPORT FROM VANDANA STEWARD. PATIENT IS S/P INCISION AND DRAINAGE OF RIGHT BREAST ABSCESS. INCISION COVERED WITH DRESSING DRY AND INTACT. VITAL SIGN STABLE AT THIS TIME AND WILL BE MONITORED. DENIES PAIN 0/10.
[2020-09-18 22:15] VITALS: BP 110/61
[2020-09-19] VITALS: BP 124/65
--- NOTE | 2020-09-19 | NUR ---
VS STABLE. WITH SLIGHT PAIN IN THE RIGHT BREAST 09/02, WANTS PAIN PILL LATER. WILL CALL DR. SILVA FOR ORDERS.
--- NOTE | 2020-09-19 00:30 | NUR ---
REQUESTED FOR JELLO AND JUICES, TOLERATED WELL. AMBULATED TO BR TO VOID, BACK TO BED AFTER VOIDING.
[2020-09-19] MEDS ORDERED: HYDROcodone/APAP 5/325 MG 1 TAB TAB PO PRN (00:40)
--- NOTE | 2020-09-19 01:08 | NUR ---
MEDICATED WITH NORCO PER MD ORDER.
--- NOTE | 2020-09-19 02:30 | NUR ---
SLEEPING COMFORTABLY IN BED.
[2020-09-19 04:00] VITALS: BP 117/60
--- NOTE | 2020-09-19 04:00 | NUR ---
NOTED SOME AMOUNT OF PINKISH RED DRAINAGE FROM INCISION, REINFORCED DRESSING.
[2020-09-19] MEDS: LACTATED RINGERS 1,000 ML IV SCH ×2 (05:45→14:05)
--- NOTE | 2020-09-19 06:00 | NUR ---
IV INFILTRATED. REFUSED NEW IV INSERTION.
--- NOTE | 2020-09-19 07:15 | NUR ---
ENDORSED TO VANDANA WILEY FOR CONTINUITY OF CARE.
--- NOTE | 2020-09-19 07:20 | NUR ---
RECEIVED PT FROM DRUM STENCILER NURSESANDY, PT IS ASLEEP AND LYING ON THE BED WITH SIDE RAILS UP AND CALL WITHIN REACH, PT HAS NO IV LINE AND WAS INFILTRATED AND NIGHT RN SAID THAT PT DOES NOT NEED IV LINE ANYMORE SINCE SHE WILL BE GOING HOME ALSO TODAY, S/P I&D ON THE RT BREAST, REINFORCED WITH DRESSING, NO SIGN OF DISTRESS NOTED, RESPIRATION IS EVEN AND WILL MONITOR PT.
--- NOTE | 2020-09-19 09:20 | NUR ---
PATIENT HAS BEEN SCREENED AND CATEGORIZED MODERATE NUTRITION RISK. PATIENT WILL BE SEEN WITHIN 3-5 DAYS OF ADMISSION. 09/21/20 09/23/[address]
--- NOTE | 2020-09-19 10:30 | NUR ---
PT IS RESTING AND PLAYING ON HER CP.
[2020-09-19] MEDS ORDERED: NORCO PO (12:01)
[2020-09-19] MEDS ORDERED: CLIN300C2 PO (12:03)
--- NOTE | 2020-09-19 14:50 | NUR ---
PT WAS GIVEN DISCHARGED INSTRUCTIONS INTERPRETED BY OVER THE PHONE, AND VERBALIZED UNDERSTANDING. RN CLINICIAN WAS NOT USED DUE TO Deskarma IS NOT WORKING AND HAD BEEN TRIED 3X BUT AFTER THE VOICE PROMPT IS OVER, NOTHING WAS HEARD ON THE OTHER LINE AND NO YARN SIZER ANSWERED
--- NOTE | 2020-09-19 15:20 | NUR ---
DISCHARGED PT TO HOME ACCOMPANIED BY , DISCHARGED TEACHINGS AND MEDICATION PRESCRIPTION TEACHING WERE GIVEN TO PT AND VERBALIZED UNDERSTANDING, IV LINE AND ARM BANDS REMOVED, PT DENIES PAIN AND IS STABLE AT THIS TIME.
== END 2020-09-19 13:20 | disposition home or self-care (01) ==
LOC: MED 06:40 → MDS 09:11 → MTU 09:56 → MDS 09-19 13:20
PROVIDERS: ATTEND Surgery
DX: N61.1 Abscess of the breast and nipple (principal); N61.21 Granulomatous mastitis, right breast; Z79.01 Long term (current) use of anticoagulants; Z88.0 Allergy status to penicillin
CPT/HCPCS: 19020; 36415; 76641; 80048; 83605; 84703; 85025; 85610; 85730; 86886; 86900; 86901; 87040; 87070; 87075; 87081; 87205; 87426; 96365; 96375; 99285; J1100; J1885; J2001; J2250; J2405; J2704; J2765; J3010; J3490; J7060; 75989